=== PATIENT | male | born 2000 | race Caucasian/White ===

== ENCOUNTER 2023-07-18 20:38 | Emergency (ER) | payer SELFPAY ==
[~2023-07-18] VITALS: Ht 175.3 cm; Wt 78.0 kg
[2023-07-18 20:48] VITALS: O2SAT 99
[2023-07-18] MEDS ORDERED: IBUP-2029 MT (21:34)
[2023-07-18] MEDS ORDERED: KETOROLAC 60MG/2ML VIAL IM ONE (21:45)
[2023-07-18] MEDS ORDERED: ACETAMINOPHEN 325MG TABLET PO ONE (21:45)
[2023-07-18 21:46] VITALS: BP 120/75; PULSE 78; RESP 19; TEMP 98.2
== END 2023-07-18 21:45 | disposition home or self-care (01) ==
LOC: ER 20:38
DX: M54.50 Low back pain, unspecified (principal); V49.49XA Driver injured in collision with other motor vehicles in traffic accident, initial encounter; Y93.89 Activity, other specified; Y92.89 Other specified places as the place of occurrence of the external cause; Y99.8 Other external cause status
CPT/HCPCS: 99281; 99282